=== PATIENT | female | born 1985 | race Caucasian/White ===

== ENCOUNTER 2017-04-04 23:46 | Inpatient (IN) | payer BC, OTHER ==
[2017-04-05 00:33] VITALS: BMI 22.6
[2017-04-05] MEDS ORDERED: morphine CARPU-JECT 4 MG/1 ML DISP.SYRIN IVPUSH ONE (01:51)
--- NOTE | 2017-04-05 01:58 | PDOC ---
History of Present Illness - General History Source: Patient Exam Limitations: No Limitations - History of Present Illness Initial Comments: 04/05/17 01:58 The patient is a 31 year old female with a significant past medical history of an umbilical hernia, who presents to the ED with pain in the umbilical hernia area that began at 2 Pm today. She describes the pain as 6/10 in severity. Patient states she experienced nausea, and 1x vomiting secondary to the umbilical hernia pain. She denies blood in vomit. She denies diarrhea, constipation, hematochezia. She denies fever, chills. Patient is 20 weeks . <Fabian Aguirre - Last Filed: 04/05/17 02:20> <Christa Rod - Last Filed: 04/05/17 02:53> - General Chief Complaint: Pain, Acute Stated Complaint: UMBICAL CORD PROBLEM ( 5 MONTHS) PREG Time Seen by Provider: 04/05/17 00:17 Past History <Fabian Aguirre - Last Filed: 04/05/17 02:20> - Past Medical History Anemia: No Asthma: No Cancer: No Cardiac Disorders: No CVA: No COPD: No CHF: No Dementia: No Diabetes: No GI Disorders: Yes (umbilical hernia) Disorders: No HTN: No Hypercholesterolemia: No Liver Disease: No Seizures: No Thyroid Disease: No - Surgical History Abdominal Surgery: Yes (HERNIA 1987) Appendectomy: No Cardiac Surgery: No Cholecystectomy: No Lung Surgery: No Neurologic Surgery: Yes (Laminectomy 2002) Orthopedic Surgery: Yes (LAMI, LAMI WITH FUSION AND RODS 2002 THEN RODS REMOVED) - Reproductive History Is Patient Now?: Yes (#): 2 Para: 1 Cervical CA: No Dysfunctional Uterine Bleeding: No Ectopic : No Endometrial CA: No Polycystic Ovaries: No Tubal Ligation: No - Psycho/Social/Smoking Cessation Hx Suicidal Ideation: No Smoking History: Never smoked Have you smoked in the past 12 months: No Information on smoking cessation initiated: No Hx Alcohol Use: No Drug/Substance Use Hx: No Substance Use Type: None Hx Substance Use Treatment: No <Christa Rod - Last Filed: 04/05/17 02:53> - Past Medical History Allergies/Adverse Reactions: Allergies Allergy/AdvReac Type Severity Reaction Status Date / Time No Known Allergies Allergy Verified 04/05/17 00:33 Home Medications: Ambulatory Orders NK [No Known Home Medication] 04/05/17 Review of Systems - Review of Systems Able to Perform ROS?: Yes Comments:: 04/05/17 01:58 GENERAL/CONSTITUTIONAL: No fever or chills. No weakness. HEAD, EYES, EARS, NOSE AND THROAT: No change in vision. No ear pain or discharge. No sore throat. CARDIOVASCULAR: No chest pain or shortness of breath. RESPIRATORY: No cough, wheezing, or hemoptysis. GASTROINTESTINAL: No nausea, vomiting, diarrhea or constipation. GENITOURINARY: No dysuria, frequency, or change in urination. MUSCULOSKELETAL: No joint or muscle swelling or pain. No neck or back pain. ABDOMINAL: umbilical hernia pain. SKIN: No rash NEUROLOGIC: No headache, vertigo, loss of consciousness, or change in strength/ sensation. ENDOCRINE: No increased thirst. No abnormal weight change. HEMATOLOGIC/LYMPHATIC: No anemia, easy bleeding, or history of blood clots. ALLERGIC/IMMUNOLOGIC: No hives or skin allergy. <Fabian Aguirre - Last Filed: 04/05/17 02:20> *Physical Exam - Vital Signs Last Vital Signs Temp Pulse Resp BP Pulse Ox 98.1 F 95 H 18 120/70 100 04/05/17 00:28 04/05/17 00:28 04/05/17 00:28 04/05/17 00:28 04/05/17 00:28 - Physical Exam Comments: 04/05/17 01:59 GENERAL: Awake, alert, and fully oriented, in no acute distress HEAD: No signs of trauma EYES: PERRLA, EOMI, sclera anicteric, conjunctiva clear ENT: Auricles normal inspection, hearing grossly normal, nares patent, oropharynx clear without exudates. Moist mucosa NECK: Normal ROM, supple, no lymphadenopathy, JVD, or masses LUNGS: Breath sounds equal, clear to auscultation bilaterally. No wheezes, and no crackles HEART: Regular rate and rhythm, normal S1 and S2, no murmurs, rubs or gallops ABDOMEN: abd gravid, umbilical hernia palp nonreducible. Soft, nontender, normoactive bowel sounds. No guarding, no rebound. No masses. EXTREMITIES: Normal range of motion, no edema. No clubbing or cyanosis. No cords, erythema, or tenderness NEUROLOGICAL: Normal speech, normal gait SKIN: Warm, Dry, normal turgor, no rashes or lesions noted. <QuinnharoldowestonFabian - Last Filed: 04/05/17 02:20> - Vital Signs Last Vital Signs Temp Pulse Resp BP Pulse Ox 98.1 F 95 H 18 120/70 100 04/05/17 00:28 04/05/17 00:28 04/05/17 00:28 04/05/17 00:28 04/05/17 00:28 <Christa Rod - Last Filed: 04/05/17 02:53> ED Treatment Course - LABORATORY CBC & Chemistry Diagram: 04/05/17 02:00 04/05/17 02:00 <RoseliaFabian ontiveros - Last Filed: 04/05/17 02:20> - LABORATORY CBC & Chemistry Diagram: 04/05/17 02:00 04/05/17 02:00 <Christa Rod - Last Filed: 04/05/17 02:53> Medical Decision Making - Medical Decision Making 04/05/17 02:[address] Davenport. Elias Willams. 04/05/17 02:[address] Willams. <CarlaFabian - Last Filed: 04/05/17 02:20> - Medical Decision Making 04/05/17 01:56 31 yo F currerntly 20 week with known umbilical hernia wtih pain that started at 2 pmk, then worse 6 hours later. around 10:30 became nauseas and threw up. no f/c pain severe near hernia. has had in the past. was waiting for surgical repair until done having children. had inguinal hernia repair as a child. no loss of fluid or bleeding. no change to bm. on exam awake alert, lung clear heart rrr, skin warm and dry. abd gravid, umbilical hernia palp nonreducible. ttp. plan; attempt reduction with iv narcotics. will d/w dr. davenport. ob. labs lactate. iv hydration. 04/05/17 02:52 d/w dr davenport, unable to reduce hernia at bedside. ultrasound performed at bedside showing hernia still out. pt ttp. concerns for incarceration. Surgery pageamricruz, dW dr willams. will see pt in few hours in am, recommend NG to try to decrompress an aid reduction, will order MRI to eval as pt can't have CT scan. morphine for pain control. admitted under DR. davenport. <Christa Rod - Last Filed: 04/05/17 02:53> *DC/Admit/Observation/Transfer - Attestations Scribe Attestion: 04/05/17 01:59 Documentation prepared by Fabian Aguirre, acting as medical claims analyst for Christa Rod MD, MD. <Fabian Aguirre - Last Filed: 04/05/17 02:20> - Discharge Dispostion Admit: Yes <Christa Rod - Last Filed: 04/05/17 02:53> Diagnosis at time of Disposition: Umbilical hernia, - Referrals Referrals: Vashti López MD [Primary Care Provider] -
[2017-04-05] MEDS ORDERED: morphine CARPU-JECT 4 MG/1 ML DISP.SYRIN ONE (02:04)
[2017-04-05 02:19] LABS: BASOPHIL 0.7 % (0-2.0); EOSINOPHIL 1.3 % (0-4.5); MCH 31.6 pg (25.7-33.7); MCHC 33.8 g/dl (32.0-36.0); MEAN CELL VOLUME 93.3 fl (80-96); MEAN PLT VOLUME 7.7 fl (7.5-11.1); NEUTROPHILS 68.9 % (42.8-82.8); PLATELET COUNT 205 K/MM3 (134-434); RDW 12.5 % (11.6-15.6); WHITE BLOOD COUNT 8.8 K/mm3 (4.0-10.0)
[2017-04-05] MEDS ORDERED: LIDOCAINE HCL 2% JELLY (5 ML/TUBE) ONE (02:30)
[2017-04-05 02:35] LABS: ACTIVATED PTT 28.7 SECONDS (26.9-34.4)
[2017-04-05 02:39] LABS: INR 1.15 (0.82-1.09); PROTHROMBIN TIME (PATIENT) 12.7 SEC (9.98-11.88)
[2017-04-05 02:52] LABS: ANION GAP 9 (8-16); BILIRUBIN,TOTAL 0.1 mg/dL (0.2-1.0); CALCIUM 8.1 mg/dL (8.5-10.1); CO2 25 mmol/L (21-32); CREATININE 0.4 mg/dL (0.55-1.02); GLUCOSE,RANDOM 90 mg/dL (74-106); SGOT/AST 13 U/L (15-37); SGPT/ALT 14 U/L (12-78); TOT PROT 6.2 g/dl (6.4-8.2)
[2017-04-05 02:53] LABS: ALK PHOS 48 U/L (45-117)
[2017-04-05] MEDS ORDERED: DEXTROSE 5%-LACTATED RINGERS 1,000 ML IV SCH (05:30)
[2017-04-05] MEDS ORDERED: ACETAMINOPHEN 1000 MG/100 ML VIAL (NON FORMULARY) IVPB PRN (06:44)
[2017-04-05 09:11] VITALS: BP 89/50; PULSE 68; TEMP 97.5
--- NOTE | 2017-04-05 10:59 | CONSULT ---
Consult Consult Specialty:: Surgery Reason for Consultation:: Incarcerated umbilical hernia - History of Present Illness Chief Complaint: Abdominal pain, nausea, vomiting - History Source History Provided By: Patient Limitations to Obtaining History: No Limitations - Past Medical History ...LMP: 03/06/16 ...: Yes Musculoskeletal: Yes: Other (Degenerative Disk Disease) - Past Surgical History Past Surgical History: Yes: Laminectomy (multiple back surgeries, as above) - Alcohol/Substance Use Hx Alcohol Use: No History of Substance Use: reports: None - Smoking History Smoking history: Never smoked Have you smoked in the past 12 months: No Home Medications - Allergies Allergies/Adverse Reactions: Allergies Allergy/AdvReac Type Severity Reaction Status Date / Time No Known Allergies Allergy Verified 04/05/17 00:33 - Home Medications Home Medications: Ambulatory Orders Vitamins (Sjr) - 1 tab PO DAILY 04/05/17 Family Disease History - Family Disease History Family History: Unremarkable Review of Systems - Review of Systems Constitutional: denies: Chills, Fever Eyes: reports: No Symptoms HENT: reports: Gingival Bleeding Cardiovascular: denies: Chest Pain Respiratory: denies: Cough Gastrointestinal: reports: Abdominal Pain, Nausea, Vomiting Genitourinary: reports: No Symptoms Neurological: denies: Change in LOC Pain Intensity: 6 Physical Exam Vital Signs: Vital Signs Temperature 97.5 F L 04/05/17 09:10 Pulse Rate 68 04/05/17 09:10 Respiratory Rate 20 04/05/17 09:10 Blood Pressure 89/50 04/05/17 09:10 O2 Sat by Pulse Oximetry (%) 100 04/05/17 05:28 Constitutional: Yes: Calm Neck: Yes: Supple Cardiovascular: Yes: Regular Rate and Rhythm Respiratory: Yes: CTA Bilaterally Gastrointestinal: Yes: Soft, Hernia (Incarcerated umbilical hernia- manually reduced), Tenderness (+ Umbilical tenderness) Extremities: Yes: WNL Neurological: Yes: Alert, Oriented Labs: CBC, BMP 04/05/17 02:00 04/05/17 02:00 Problem List - Problems (1) Code(s): Z33.1 - STATE, INCIDENTAL Qualifiers: Weeks of gestation: 20 weeks Qualified Code(s): Z3A.20 - 20 weeks gestation of (2) Incarcerated umbilical hernia Code(s): K42.0 - UMBILICAL HERNIA WITH OBSTRUCTION, WITHOUT GANGRENE Assessment/Plan 31 female 20 weeks with an incarcerated umbilical hernia + Pain + Significant tenderness Fully reduced manually at the bedside after NG tube had been place Pain improved D/C Ng tube Clears Abdominal binder Regular diet later- if tolerates can discharge home today Explained that she can have a recurrence at anytime and should wear the binder at all times If she has recurrent pain, nausea, vomiting, she should return to the ER
--- NOTE | 2017-04-05 11:56 | HP ---
Past Medical History - Primary Care Physician PCP:: Jesus Davenport - Admission Chief Complaint: 31 yo P1 with at EGA 20wks admitted this morning after the pt came to the ER c/o umbilical pain and vomiting x 1 day. 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: No: Alzheimer's, CVA, Dementia, Migraine, Multiple Sclerosis, Peripheral Neuropathy, Parkinson's, Seizure, Syncope, TIA, Vertigo, Other Cardiovascular: No: AFIB, Aneurysm, Aortic Insufficiency, Aortic Stenosis, CAD, CHF, Deep Vein Thrombosis, HTN, Hyperlipdemia, ND, Mitral Insufficiency, Mitral Stenosis, Murmur, Pulmonary Hypertension, Other Pulmonary: No: Asthma, Bronchitis, Cancer, COPD, O2 Dependent, Pneumonia, Previously Intubated, Pulmonary Embolus, Pulmonary Fibrosis, Sleep Apnea, Other Gastrointestinal: Yes: Other (umbilicaal hernia) Hepatobiliary: No: Cirrhosis, Cholelithiasis, Cholecystitis, Choledocholithiasis , Hepatitis A, Hepatitis B, Hepatitis C, Other Renal/: No: Renal Failure, Renal Inusuff, BPH, Cancer, Hematuria, Hemodialysis , Neurogenic Bladder, Renal Calculi, UTI, Other Reproductive: No: Ectopic , Endometriosis, Fibroids, PID, Polycystic Ovary Syndrome, Postmenopausal, Other ...: 2 ...Para: 1 ( x 1) ...Term: 1 ...: 0 ...Spon : 0 ...Induced : 0 ...Multiple Gestation: 0 ... Weeks Gestation by Dates: ...EDC by Dates: 08/23/17 Heme/Onc: No: Anemia, B12 Deficiency, Bleeding Disorder, Cancer, Current Chemotherapy, Current Radiation Therapy, Hemochromatosis, Hypercoaguable State, Myeloproliferative Synd, Sickle Cell Disease, Sickle Cell Trait, Thrombocytopenia, Other Infectious Disease: No: AIDS, C-Diff, Herpes Zoster, HIV, MRSA, STD's, Tuberculosis, VREF, Other Psych: No: Addictions, Anxiety, Bipolar, Depression, Panic, Psychosis, Schizophrenia, Other Musculoskeletal: Yes: Other (Degenerative Disk Disease) Rheumatology: No: Fibromyalgia, Gout, Lupus, Rheumatoid Arthritis, Sarcoidosis, Vasculitis, Other ENT: No: Allergic Rhinitis, Sinusitis, Other Endocrine: No: Colfax's Disease, Faustino's Disease, Diabetes Insipidus, Diabetes Mellitus, Hyperparathyroidism, Hyperthyroidism, Hypothyroidism, Osteopenia, SIADH, Other Dermatology: No: Basal Cell, Cellulitis, Eczema, Melanoma, Psoriasis, Squamous Cell, Other - Past Surgical History Past Surgical History: Yes: Laminectomy (multiple back surgeries, as above) Hx Myomectomy: No Hx Transabdominal Cerclage: No - Smoking History Smoking history: Never smoked Have you smoked in the past 12 months: No - Alcohol/Substance Use Hx Alcohol Use: No History of Substance Use: reports: None Home Medications - Allergies Allergies/Adverse Reactions: Allergies Allergy/AdvReac Type Severity Reaction Status Date / Time No Known Allergies Allergy Verified 04/05/17 00:33 - Home Medications Home Medications: Ambulatory Orders Vitamins (Sjr) - 1 tab PO DAILY 04/05/17 Family Disease History - Family Disease History Family History: Denies Review of Systems Findings/Remarks: Patient was seen by General Surgery and NGT was placed followed by successful reduction of the incarcerated umbilical hernia. The pt is now well. 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 Vital Signs: Vital Signs Temperature 97.5 F L 04/05/17 09:10 Pulse Rate 68 04/05/17 09:10 Respiratory Rate 20 04/05/17 09:10 Blood Pressure 89/50 04/05/17 09:10 O2 Sat by Pulse Oximetry (%) 100 04/05/17 05:28 Constitutional: Yes: Well Nourished, No Distress, Calm Eyes: Yes: WNL, Conjunctiva Clear HENT: Yes: WNL, Atraumatic, Normocephalic Neck: Yes: WNL, Supple, Trachea Midline Cardiovascular: Yes: WNL, Regular Rate and Rhythm Respiratory: Yes: WNL, Regular, CTA Bilaterally Gastrointestinal: Yes: Normal Bowel Sounds, Soft, Other (umbilcal hernia) Renal/: Yes: WNL Pelvis: Yes: WNL External Genitalia: Yes: Normal Internal Exam Deferred: Yes Musculoskeletal: Yes: WNL Extremities: Yes: WNL Edema: No Integumentary: Yes: WNL Neurological: Yes: WNL, Alert, Oriented ...Motor Strength: WNL Psychiatric: Yes: WNL, Alert, Oriented Assessment/Plan 31 yo P1 with at EGA 20wks admitted this morning after the pt came to the ER c/o umbilical pain and vomiting x 1 day. The incarcerated umbilical hernia was reduced by general surgeon. Plan to d/g NGT and monitor. If pt is well, will d/c home today. No issue with OB care.
--- NOTE | 2017-04-05 13:01 | PN ---
Progress Note (short form) - Note Progress Note: Pt is doing well, comfortable, tolerated clear fluid diet. If able to tolerate regular diet, will d/c home.
== END 2017-04-05 15:17 | disposition home or self-care (01) | DRG 781 ==
LOC: JER 23:46 → JERBED 04-05 02:51 → UNDOADMIN 04-05 03:18 → JERBED 04-05 03:18 → J3W 04-05 04:57
PROVIDERS: ADMIT Obstetrics & Gynecology; ATTEND Obstetrics & Gynecology
DX: O26.892 Other specified pregnancy related conditions, second trimester (principal); K42.0 Umbilical hernia with obstruction, without gangrene; Z3A.20 20 weeks gestation of pregnancy
CPT/HCPCS: 36415; 80053; 83605; 85025; 85610; 85730; 99285-25

== ENCOUNTER 2019-02-01 12:50 | Day surgery (SDC) | payer BC, OTHER ==
[2019-01-31 15:08] VITALS: BMI 18.6
[2019-02-01] MEDS ORDERED: MIDAZOLAM HCL 2 MG/2 ML SINGLE DOSE VIAL ONE (14:16)
[2019-02-01] MEDS ORDERED: PROPOFOL 20 ML ONE (14:16)
[2019-02-01] MEDS ORDERED: ceFAZolin SODIUM 1 GM VIAL IVPB ONE (14:34)
--- NOTE | 2019-02-01 15:07 | OP ---
Operative Note - Note: Operative Date: 02/01/19 Pre-Operative Diagnosis: Missed Ab at 6wks Operation: Surgical Tx of missed Ab (suction, D&C) Findings: Small RV uterus, POC on suction curettage, no RPOC at end of procedure Post-Operative Diagnosis: Same as Pre-op Surgeon: Jesus Davenport Anesthesiologist/RETORT LOADER: Jerome Rodriguez Anesthesia: General Specimens Removed: POC Estimated Blood Loss (mls): 30 Blood Volume Replaced (mls): 0 Fluid Volume Replaced (mls): 400 Operative Report Dictated: Yes
--- NOTE | 2019-02-01 16:09 | OP ---
DATE OF OPERATION: 02/01/2019 PREOPERATIVE DIAGNOSIS: Missed at 6 weeks estimated gestational age. POSTOPERATIVE DIAGNOSIS: Missed at 6 weeks estimated gestational age. PROCEDURE: Surgical treatment of missed (suction dilation and curettage). SURGEON: Sriram Hobson MD ANESTHESIOLOGIST: KIMO Sousa-JONEL ANESTHESIA: General. COMPLICATIONS: None. ESTIMATED BLOOD LOSS: 30 mL. IV FLUIDS: 400 mL. COMPLICATIONS: None. PATHOLOGY: Products of conception. FINDINGS: Examination under anesthesia revealed a small retroverted uterus, with no pelvic or adnexal masses. Products of conception were noted on suction curettage. No retained products of conception were noted at the end of the procedure. PROCEDURE DESCRIPTION: The patient was met preoperatively. Risks, benefits, and alternatives of surgery were discussed in detail. All questions were answered. The consent form was reviewed and signed. The patient verbalized her understanding of the procedure risks and consent. The patient was then brought to the OR. She was placed on the surgical table in a supine position. The general anesthesia was achieved without difficulty. The patient was then placed in a dorsal lithotomy position using adjustable Vernon stirrups. She was examined under anesthesia, with the findings as described above. A timeout procedure was then conducted as per standard protocol. The patient was prepped and draped in the usual sterile fashion. A sterile speculum was introduced inside the vagina, with good visualization of the cervix. The cervix was grasped with a single-tooth tenaculum. The cervical os was gently dilated to accommodate a size 21 Lubin dilator. A 6-mm suction curette was then used into the uterine cavity. A vacuum curettage was performed, and all of the products of conception were removed from the uterus. Once this was completed, the uterine cavity was gently explored with the sharp curette to assure no retained tissue. All of the instruments were then removed from the patient. Good hemostasis was assured. Sponge, lap, needle counts were correct. The patient was returned to supine position. The patient was then transferred to recovery room, awake and in stable condition. SRIRAM HOBSON M.D. [id number]
[2019-02-01 18:00] VITALS: BP 99/60; PULSE 58; TEMP 97.8
--- NOTE | 2019-02-06 16:19 | PATH ---
Surgical Pathology Report Patient Name: DHARMESH SANTOS [facility]. Rec. #: [id number] /Age/Gender: 1985 (Age: 33) / F Account: [id number] Location: [facility] SURGICAL Taken: 02/01/2019 Received: 02/02/2019 Reported: 02/06/2019 Physicians: Jesus Davenport M.D. Specimen(s) Received PRODUCTS OF CONCEPTION Clinical History Missed Final Diagnosis PRODUCTS OF CONCEPTION: CHORIONIC VILLI PRESENT, CONSISTENT WITH PRODUCTS OF CONCEPTION. FOCAL HYDROPIC CHANGE OF VILLI PRESENT. Electronically Signed John Guerrero M.D. Gross Description Received in formalin labeled "products of conception," is a 13.0 x 12.0 x 1.2 cm aggregate of carlson red soft tissue fragments admixed with blood clot. Villous tissue is identified. No somatic tissue is identified. A manufacturers representative portion is submitted in one cassette. /02/02/2019 saudi02/02/2019
== END 2019-02-01 17:45 | disposition home or self-care (01) ==
LOC: JASU-SURG 12:50
PROVIDERS: ATTEND Obstetrics & Gynecology
PROC: 10D17ZZ Extraction of Products of Conception, Retained, Via Natural or Artificial Opening (ICD-10-PCS; principal; 2019-02-01 14:00)
DX: O02.1 Missed abortion (principal)
CPT/HCPCS: 86850; 86900; 86901; 88305-TC; 94760

== ENCOUNTER 2021-11-03 09:01 | Emergency (ER) | payer BC, OTHER ==
[2021-11-03 09:24] VITALS: BP 123/81; PULSE 50; TEMP 98.1; BMI 16.1
[2021-11-03] MEDS ORDERED: ACETAMINOPHEN 1000 MG/100 ML BAG IVPB ONE (09:48)
[2021-11-03] MEDS ORDERED: SODIUM CHLORIDE 0.9% 500 ML INFUS.BAG IV ONE (09:48)
[2021-11-03] MEDS ORDERED: ONDANSETRON 4 MG/2 ML VIAL IVPB ONE (09:50)
[2021-11-03] MEDS ORDERED: ACETAMINOPHEN INJECTION 100 ML IVPB ONE (09:56)
[2021-11-03] MEDS ORDERED: ONDANSETRON 4 MG/2 ML VIAL ONE (09:56)
[2021-11-03] MEDS ORDERED: MAG HYDROX/ALH/SMC/DPHA/LIDO 240 ML MOUTHWASH MM ONE (10:24)
[2021-11-03 10:43] LABS: HEMATOCRIT 38.3 % (32.4-45.2); HEMOGLOBIN 12.6 GM/dL (10.7-15.3); MCH 29.6 pg (25.7-33.7); MCHC 32.9 g/dl (32.0-36.0); MEAN CELL VOLUME 89.9 fl (80-96); MEAN PLT VOLUME 7.3 fl (7.5-11.1); PLATELET COUNT 300 10^3/uL (134-434); RBC 4.26 M/mm3 (3.60-5.2); RDW 12.9 % (11.6-15.6); WHITE BLOOD COUNT 4.2 K/mm3 (4.0-10.0)
[2021-11-03 11:04] LABS: CALCIUM 9.3 mg/dL (8.5-10.1)
[2021-11-03 11:05] LABS: ALBUMIN 4.2 g/dl (3.4-5.0)
[2021-11-03 11:09] LABS: BILIRUBIN,TOTAL 0.4 mg/dL (0.2-1); CREATININE 0.7 mg/dL (0.55-1.3); TOT PROT 7.7 g/dl (6.4-8.2)
[2021-11-03 11:34] LABS: ANISOCYTOSIS 0; HELMET CELLS 0; HOWELL-JOLLY BODIES 0; MACROCYTOSIS 0; OVALOCYTE 0; PLATELET ESTIMATE NORMAL; ROULEAU 0; SICKELED CELLS 0; TARGET CELLS 0; TEAR DROP CELLS 0; TOXIC GRANULATION 0
[2021-11-03] MEDS ORDERED: LACTATED RINGERS SOLUTION 1000 ML INFUS.BAG IV ONE (11:48)
[2021-11-03 12:57] LABS: PH,URINE 5.5 (5.0-8.0); URINE APPEARANCE CLEAR; URINE BILIRUBIN NEGATIVE (NEGATIVE); URINE COLOR YELLOW; URINE GLUCOSE (UA) TRACE (NEGATIVE); URINE KETONE NEGATIVE (NEGATIVE); URINE LEUK ESTERASE NEGATIVE (NEGATIVE); URINE NITRITE NEGATIVE (NEGATIVE); URINE PROTEIN NEGATIVE (NEGATIVE); URINE UROBILINOGEN 0.2 mg/dL (0.2-1.0)
[2021-11-03 13:00] LABS: HCG,QUALITATIVE URINE Negative
== END 2021-11-03 13:22 | disposition home or self-care (01) ==
LOC: JER 09:01
PROC: 3E0333Z Introduction of Anti-inflammatory into Peripheral Vein, Percutaneous Approach (ICD-10-PCS; principal; 2021-11-03)
PROC: 3E033GC Introduction of Other Therapeutic Substance into Peripheral Vein, Percutaneous Approach (ICD-10-PCS; 2021-11-03)
DX: R11.2 Nausea with vomiting, unspecified (principal)
CPT/HCPCS: 36415; 71045-TC-FY; 80053; 81003; 83690; 84443; 84703; 85025; 87086; 93005; 93010; 99285-25; C9803; J0131; U0003; U0005

== ENCOUNTER 2022-09-20 08:10 | Inpatient (IN) | payer BC, OTHER ==
[2022-09-20] MEDS: ELECTROLYTE-148 SOLN 1,000 ML IV SCH ×2 (09:00→16:00)
[2022-09-20 09:34] VITALS: BMI 24.5
[2022-09-20] MEDS ORDERED: OXYTOCIN 30 UNITS in 0.9% NS 30 UNIT/500 ML INFUS.BAG IVPB ONE (10:20)
[2022-09-20] MEDS ORDERED: OXYTOCIN 30 UNITS in 0.9% NS 30 UNIT/500 ML INFUS.BAG IVPB SCH (10:30)
[2022-09-20] MEDS ORDERED: BUTORPHANOL TARTRATE 2 MG/ML VIAL IVPB ONE (15:43)
[2022-09-20] MEDS ORDERED: PROMETHAZINE HCL 25 MG/1 ML VIAL IVPB ONE (15:43)
[2022-09-20] MEDS ORDERED: PROMETHAZINE HCL 25 MG/1 ML VIAL ONE (15:47)
[2022-09-20] MEDS ORDERED: BUTORPHANOL TARTRATE 2 MG/ML VIAL ONE (15:47)
[2022-09-20] MEDS ORDERED: NALOXONE HCL 0.4 MG/ML VIAL IVPUSH PRN (18:43)
[2022-09-20] MEDS ORDERED: FENTANYL/BUPIVACAINE/NS/PF - PCEA - 50 ML DISP.SYRIN EP SCH (18:45)
[2022-09-20] MEDS ORDERED: LIDOCAINE HCL 1% PRESERVATIVE FREE - 30ML VIAL ONE (18:49)
[2022-09-20] MEDS ORDERED: OXYTOCIN 20 UNITS in 0.9% NS 20 UNIT/1,000 ML INFUS.BAG IV ONE (18:49)
[2022-09-20] MEDS ORDERED: METHYLERGONOVINE MALEATE 0.2 MG/1 ML AMP IM PRN (19:14)
[2022-09-20] MEDS ORDERED: BISACODYL 10 MG SUPP.RECT RC PRN (19:14)
[2022-09-20] MEDS ORDERED: BENZOCAINE 28 GM HEMORRHOIDAL OINTMENT TP PRN (19:14)
[2022-09-20] MEDS ORDERED: ACETAMINOPHEN 325 MG TABLET (FP) PO PRN (19:14)
[2022-09-20] MEDS ORDERED: BENZOCAINE 20% 57 GM BOTTLE TP PRN (19:14)
[2022-09-20] MEDS ORDERED: WITCH HAZEL 50% (TUCKS) 40 PAD/JAR PAD TP PRN (19:14)
[2022-09-20] MEDS ORDERED: OXYTOCIN 20 UNITS in 0.9% NS 20 UNIT/1,000 ML INFUS.BAG IV SCH (19:15)
[2022-09-20 20:58] VITALS: RESP 18
[2022-09-20] MEDS: IBUPROFEN 600 MG TABLET (FP) PO PRN (22:23)
[2022-09-21] MEDS: IBUPROFEN 600 MG TABLET (FP) PO PRN ×2 (08:10→13:22)
[2022-09-21] MEDS: PRENATAL VITAMINS W/ FOLIC ACID TABLET (FP) PO SCH (09:25)
[2022-09-21 09:27] LABS: BASO % 0.6 % (0-2.0); EOS % 0.5 % (0-4.5); HEMATOCRIT 34.4 % (32.4-45.2); HEMOGLOBIN 11.7 GM/dL (10.7-15.3); LYMPH % 12.7 % (8-40); MCH 30.7 pg (25.7-33.7); MEAN CELL VOLUME 90.3 fl (80-96); MEAN PLT VOLUME 7.5 fl (7.5-11.1); MONO % 8.1 % (3.8-10.2); NEUT % 78.1 % (42.8-82.8); PLATELET COUNT 222 10^3/uL (134-434); RBC 3.81 M/mm3 (3.60-5.2); WHITE BLOOD COUNT 8.8 K/mm3 (4.0-10.0)
[2022-09-21] MEDS: oxyCODONE HCL 5 MG TABLET PO PRN (19:49)
[2022-09-21] MEDS ORDERED: SENNOSIDES/DOCUSATE COMBO (SENNA PLUS) TABLET (UD) PO PRN (22:00)
[2022-09-22] MEDS: oxyCODONE HCL 5 MG TABLET PO PRN ×2 (02:34→09:52)
[2022-09-22] MEDS: PRENATAL VITAMINS W/ FOLIC ACID TABLET (FP) PO SCH (09:52)
[2022-09-22 13:38] VITALS: BP 105/60; PULSE 55; TEMP 97.9
== END 2022-09-22 11:50 | disposition home or self-care (01) | DRG 807 ==
LOC: JLDR 08:10 → J3W 21:02
PROVIDERS: ADMIT Obstetrics & Gynecology; ATTEND Obstetrics & Gynecology
PROC: 10E0XZZ Delivery of Products of Conception, External Approach (ICD-10-PCS; principal; 2022-09-20)
PROC: 0HQ9XZZ Repair Perineum Skin, External Approach (ICD-10-PCS; 2022-09-20)
DX: O48.0 Post-term pregnancy (principal); Z37.0 Single live birth; O99.02 Anemia complicating childbirth; O70.0 First degree perineal laceration during delivery; Z3A.41 41 weeks gestation of pregnancy
CPT/HCPCS: 36415; 59409; 85025

== ENCOUNTER 2023-10-08 18:03 | Inpatient (IN) | payer BC, OTHER ==
[2023-10-08] MEDS ORDERED: ACETAMINOPHEN 1000 MG/100 ML BAG IVPB ONE (19:24)
[2023-10-08] MEDS ORDERED: SODIUM CHLORIDE 0.9% 500 ML INFUS.BAG IV ONE (19:25)
[2023-10-08] MEDS ORDERED: CEFTRIAXONE 1 GM in DEXTROSE 5%-WATER - 50 ML IVPB ONE (20:22)
[2023-10-08] MEDS ORDERED: AZITHROMYCIN IVPB 500 MG in DEXTROSE 5%-WATER - 250 ML IVPB ONE (20:22)
[2023-10-08] MEDS ORDERED: ACETAMINOPHEN INJECTION 100 ML IVPB ONE (20:22)
[2023-10-08 20:48] LABS: URINE APPEARANCE CLEAR; URINE BILIRUBIN NEGATIVE (NEGATIVE); URINE COLOR YELLOW; URINE GLUCOSE (UA) NEGATIVE (NEGATIVE); URINE KETONE 1+ (NEGATIVE); URINE LEUK ESTERASE NEGATIVE (NEGATIVE); URINE NITRITE NEGATIVE (NEGATIVE); URINE PROTEIN NEGATIVE (NEGATIVE); URINE UROBILINOGEN 0.2 mg/dL (0.2-1.0)
[2023-10-08 20:52] LABS: BASO % 0.8 % (0-2.0); EOS % 0.3 % (0-4.5); HEMATOCRIT 36.4 % (32.4-45.2); HEMOGLOBIN 12.3 GM/dL (10.7-15.3); LYMPH % 15.5 % (8-40); MCH 29.3 pg (25.7-33.7); MCHC 33.8 g/dl (32.0-36.0); MEAN CELL VOLUME 86.5 fl (80-96); MEAN PLT VOLUME 6.7 fl (7.5-11.1); MONO % 10.7 % (3.8-10.2); NEUT % 72.7 % (42.8-82.8); PLATELET COUNT 548 10^3/uL (134-434); RDW 12.7 % (11.6-15.6); WHITE BLOOD COUNT 10.7 K/mm3 (4.0-10.0)
[2023-10-08 20:53] LABS: POTASSIUM 4.3 mmol/L (3.5-5.1)
[2023-10-08] MEDS ORDERED: morphine CARPU-JECT 2 MG/1 ML DISP.SYRIN IVPUSH ONE (20:56)
[2023-10-08 20:57] LABS: ALBUMIN 3.6 g/dl (3.4-5.0); CALCIUM 8.8 mg/dL (8.5-10.1); INR 1.51 (0.83-1.09); PROTHROMBIN TIME (PATIENT) 17.5 SEC (9.7-13.0)
[2023-10-08 20:58] LABS: BLOOD UREA NITROGEN 8.3 mg/dL (7-18)
[2023-10-08 21:01] LABS: CREATININE 0.5 mg/dL (0.55-1.3)
[2023-10-08 21:02] LABS: BILIRUBIN,TOTAL 0.4 mg/dL (0.2-1); TOT PROT 7.9 g/dl (6.4-8.2)
[2023-10-08] MEDS ORDERED: CEFTRIAXONE 1 GM/50 ML BAG ONE (21:15)
[2023-10-08] MEDS ORDERED: AZITHROMYCIN IVPB 500 MG/250 ML BAG IVPB ONE (21:44)
[2023-10-09] MEDS ORDERED: SODIUM CHLORIDE 1,000 ML IV STA (01:42)
[2023-10-09] MEDS ORDERED: SODIUM CHLORIDE 1,000 ML IV SCH (02:00)
[2023-10-09] MEDS ORDERED: methylPREDNISolone NA SUCC 40 MG/1 ML VIAL ONE (08:05)
[2023-10-09] MEDS ORDERED: CEFTRIAXONE 1 GM/50 ML BAG ONE (08:05)
[2023-10-09] MEDS ORDERED: AZITHROMYCIN 500 MG TABLET ONE (08:06)
[2023-10-09] MEDS ORDERED: ENOXAPARIN NA (PORCINE) 40 MG/0.4 ML DISP.SYRIN SQ ONE (08:06)
[2023-10-09] MEDS ORDERED: ALBUTEROL SO4 2.5/IPRATROPIUM 0.5 INH SOL 3 ML VIAL.NEB. NEB ONE (08:06)
[2023-10-09] MEDS ORDERED: ACETAMINOPHEN 325 MG TABLET (FP) ONE (08:09)
[2023-10-09] MEDS: ALBUTEROL SO4 2.5/IPRATROPIUM 0.5 INH SOL 3 ML VIAL.NEB. NEB SCH ×4 (08:10→20:49)
[2023-10-09] MEDS: CEFTRIAXONE 1 GM in DEXTROSE 5%-WATER - 50 ML IVPB SCH (08:12)
[2023-10-09] MEDS: methylPREDNISolone NA SUCC 40 MG/1 ML VIAL IVPUSH SCH (08:13)
[2023-10-09] MEDS: AZITHROMYCIN 500 MG TABLET PO SCH (08:28)
[2023-10-09] MEDS: ACETAMINOPHEN 325 MG TABLET (FP) PO PRN ×2 (08:28→14:42)
[2023-10-09] MEDS: ENOXAPARIN NA (PORCINE) 40 MG/0.4 ML DISP.SYRIN SQ SCH (08:29)
[2023-10-09] MEDS ORDERED: methylPREDNISolone NA SUCC 40 MG/1 ML VIAL IVPUSH SCH (09:00)
[2023-10-09] MEDS ORDERED: LIDOCAINE 4% PATCH TP ONE (16:03)
[2023-10-09] MEDS ORDERED: ACETAMINOPHEN 1000 MG/100 ML BAG IVPB ONE (16:03)
[2023-10-09] MEDS ORDERED: LIDOCAINE 5% TOPICAL PATCH TP ONE (16:03)
[2023-10-09] MEDS ORDERED: KETOROLAC TROMETHAMINE 15 MG/ML VIAL IVPUSH ONE (21:07)
[2023-10-09] MEDS: SODIUM CHLORIDE 1,000 ML IV SCH (21:24)
[2023-10-09] MEDS ORDERED: MELATONIN 5 MG TABLETS PO PRN (21:44)
[2023-10-09] MEDS ORDERED: guaiFENesin/D-METHORPHAN HB 10 ML UNIT-DOSE CUPS PO PRN (21:47)
[2023-10-09] MEDS: LIDOCAINE PATCH REMOVAL MC SCH (21:49)
[2023-10-10] MEDS: ALBUTEROL SO4 2.5/IPRATROPIUM 0.5 INH SOL 3 ML VIAL.NEB. NEB SCH ×6 (00:30→20:30)
[2023-10-10 09:35] LABS: HEMATOCRIT 31.4 % (32.4-45.2); HEMOGLOBIN 10.7 GM/dL (10.7-15.3); MCH 29.7 pg (25.7-33.7); MCHC 34.1 g/dl (32.0-36.0); MEAN CELL VOLUME 87.1 fl (80-96); MEAN PLT VOLUME 6.7 fl (7.5-11.1); PLATELET COUNT 481 10^3/uL (134-434); RBC 3.61 M/mm3 (3.60-5.2); RDW 12.7 % (11.6-15.6); WHITE BLOOD COUNT 6.3 K/mm3 (4.0-10.0)
[2023-10-10 09:54] LABS: POTASSIUM 3.6 mmol/L (3.5-5.1)
[2023-10-10 09:59] LABS: CALCIUM 8.7 mg/dL (8.5-10.1)
[2023-10-10 10:00] LABS: ALBUMIN 2.9 g/dl (3.4-5.0); BLOOD UREA NITROGEN 9.9 mg/dL (7-18); MAGNESIUM 2.2 mg/dL (1.8-2.4)
[2023-10-10 10:02] LABS: CREATININE 0.5 mg/dL (0.55-1.3); PHOSPHOROUS 2.9 mg/dL (2.5-4.9)
[2023-10-10 10:04] LABS: BILIRUBIN,TOTAL 0.2 mg/dL (0.2-1); TOT PROT 6.6 g/dl (6.4-8.2)
[2023-10-10] MEDS: methylPREDNISolone NA SUCC 40 MG/1 ML VIAL IVPUSH SCH (10:20)
[2023-10-10] MEDS: ENOXAPARIN NA (PORCINE) 40 MG/0.4 ML DISP.SYRIN SQ SCH (10:20)
[2023-10-10] MEDS: CEFTRIAXONE 1 GM in DEXTROSE 5%-WATER - 50 ML IVPB SCH (10:20)
[2023-10-10] MEDS: AZITHROMYCIN 500 MG TABLET PO SCH (11:50)
[2023-10-10] MEDS: traMADol HCL 50 MG TABLET PO PRN ×2 (14:44→22:05)
[2023-10-10 15:18] VITALS: BMI 16.3
[2023-10-10] MEDS: SODIUM CHLORIDE 1,000 ML IV SCH (15:45)
[2023-10-10] MEDS: LIDOCAINE PATCH REMOVAL MC SCH (22:55)
[2023-10-11] MEDS: ALBUTEROL SO4 2.5/IPRATROPIUM 0.5 INH SOL 3 ML VIAL.NEB. NEB SCH ×4 (04:00→11:31)
[2023-10-11] MEDS: SODIUM CHLORIDE 1,000 ML IV SCH (06:08)
[2023-10-11] MEDS: CEFTRIAXONE 1 GM in DEXTROSE 5%-WATER - 50 ML IVPB SCH (09:48)
[2023-10-11] MEDS: AZITHROMYCIN 500 MG TABLET PO SCH (09:48)
[2023-10-11] MEDS: methylPREDNISolone NA SUCC 40 MG/1 ML VIAL IVPUSH SCH (09:48)
[2023-10-11] MEDS: ENOXAPARIN NA (PORCINE) 40 MG/0.4 ML DISP.SYRIN SQ SCH (09:48)
[2023-10-11] MEDS: traMADol HCL 50 MG TABLET PO PRN (10:31)
[2023-10-11 14:04] VITALS: BP 111/69; PULSE 68; RESP 19; TEMP 98.1
== END 2023-10-11 14:04 | disposition home or self-care (01) | DRG 195 ==
LOC: JER 18:03 → JERBED 20:43 → OBSVTOIN 10-09 02:15 → J7W 10-09 10:54
PROVIDERS: ADMIT Family Medicine; ATTEND Family Medicine
DX: J18.9 Pneumonia, unspecified organism (principal); R09.02 Hypoxemia; Z87.39 Personal history of other diseases of the musculoskeletal system and connective tissue
CPT/HCPCS: 0241U-QW; 36415; 71046-TC-FY; 71275-TC; 80053; 81003; 83735; 84100; 84484; 84702; 85025; 85027; 85379; 85610; 87040; 87070; 87081; 87086; 87205; 87899; 93005; 93010; 94010; 94640; 99285-25; G0378; Q9967

== ENCOUNTER 2024-01-02 20:21 | Emergency (ER) | payer BC, OTHER ==
[2024-01-02] MEDS: morphine CARPU-JECT 2 MG/1 ML DISP.SYRIN IVPUSH ONE ×2 (20:33→20:59)
[2024-01-02] MEDS: ONDANSETRON 4 MG/2 ML VIAL IVPB ONE (20:33)
[2024-01-02] MEDS: SODIUM CHLORIDE 0.9% 500 ML INFUS.BAG IV ONE (20:33)
[2024-01-02 20:44] VITALS: BP 115/94; PULSE 66; RESP 20; TEMP 98; BMI 17.1
[2024-01-02] MEDS ORDERED: ACETAMINOPHEN INJECTION 100 ML IVPB ONE (20:54)
[2024-01-02] MEDS ORDERED: PANTOPRAZOLE SODIUM 40 MG VIAL ONE (20:54)
[2024-01-02] MEDS ORDERED: FAMOTIDINE 20 MG/50 ML IVPB 20 MG/50 ML MG IVPB ONE (20:54)
[2024-01-02] MEDS: DEXTROSE 5%-NORMAL SALINE 1,000 ML IV ONE (20:55)
[2024-01-02] MEDS ORDERED: MAGNESIUM 1GM/D5W - 2 GM/200 ML IVPB IVPB ONE (20:55)
[2024-01-02] MEDS: ACETAMINOPHEN 1000 MG/100 ML BAG IVPB ONE (20:59)
[2024-01-02] MEDS: FAMOTIDINE 20 MG/50 ML IVPB 20 MG/50 ML MG IVPB ONE (20:59)
[2024-01-02 21:08] LABS: HEMATOCRIT 40.8 % (32.4-45.2); HEMOGLOBIN 14.3 G/dL (10.7-15.3); MCH 31.2 pg (25.7-33.7); MCHC 35.1 g/dl (32.0-36.0); MEAN CELL VOLUME 88.9 fl (80-96); MEAN PLT VOLUME 7.9 fl (7.5-11.1); PLATELET COUNT 268.5 10^3/uL (134-434); RBC 4.59 10^6/uL (3.60-5.2); RDW 14.2 % (11.6-15.6); WHITE BLOOD COUNT 10.2 10^3/uL (4.0-10.8)
[2024-01-02] MEDS: PANTOPRAZOLE SODIUM 40 MG VIAL IVPUSH ONE (21:16)
[2024-01-02] MEDS: MAGNESIUM SULF 50% (8.12 MEQ/2 ML-1 GM VIAL) IVPB ONE (21:25)
[2024-01-02 21:59] LABS: ALBUMIN 5.1 g/dl (3.4-5.0); BILIRUBIN,TOTAL 0.9 mg/dl (0.2-1); CALCIUM 9.9 mg/dl (8.5-10.1); CREATININE 0.7 mg/dl (0.6-1.3); POTASSIUM 4.2 mmol/L (3.5-5.1)
[2024-01-02 22:12] LABS: TOT PROT 8.1 g/dl (6.4-8.2)
[2024-01-02 22:21] LABS: INR 1.3 (0.83-1.09)
== END 2024-01-02 23:16 | disposition home or self-care (01) ==
LOC: FER 20:21
PROC: 3E033GC Introduction of Other Therapeutic Substance into Peripheral Vein, Percutaneous Approach (ICD-10-PCS; principal; 2024-01-02)
PROC: 3E033NZ Introduction of Analgesics, Hypnotics, Sedatives into Peripheral Vein, Percutaneous Approach (ICD-10-PCS; 2024-01-02)
PROC: 3E033GC Introduction of Other Therapeutic Substance into Peripheral Vein, Percutaneous Approach (ICD-10-PCS; 2024-01-02)
PROC: 3E033GC Introduction of Other Therapeutic Substance into Peripheral Vein, Percutaneous Approach (ICD-10-PCS; 2024-01-02)
PROC: 3E033GC Introduction of Other Therapeutic Substance into Peripheral Vein, Percutaneous Approach (ICD-10-PCS; 2024-01-02)
PROC: 3E033GC Introduction of Other Therapeutic Substance into Peripheral Vein, Percutaneous Approach (ICD-10-PCS; 2024-01-02)
PROC: 3E0337Z Introduction of Electrolytic and Water Balance Substance into Peripheral Vein, Percutaneous Approach (ICD-10-PCS; 2024-01-02)
DX: R10.33 Periumbilical pain (principal); E86.0 Dehydration; R11.10 Vomiting, unspecified
CPT/HCPCS: 36415; 80053; 83690; 84702; 85027; 85610; 86850; 86900; 86901; 99284-25; J0131